=== PATIENT | female | born 1980 | race Caucasian/White ===

== ENCOUNTER 2016-12-20 09:53 | Emergency (ER) | payer OTHER ==
--- NOTE | ~2016-12-20 | CR72 ---
[facility] A Service of [facility] RADIOLOGY TEXT RESULTS PATIENT: WESLEY MARIEE LOCATION: SED : 82 UNIT #: [id number] AGE: [address]: Aníbal Kemp MD SEX: F ORDER DR: [id number] [place] [id number] MR#: [id number] Acc #: [id number] NAME: WESLEY MARIEE : 1980 SEX: F STUDY DATE/TIME: 12/20/2016 10:08 UNIT: SED ROOM: STUDY DESCRIPTION: CR Chest Single View Portable Attending Physician: Aníbal Kemp M.D. Ordering Physician: Aníbal Kepm M.D. Primary Care Physician: No Primary Care Physician MEDICAL IMAGING REPORT This report is preliminary unless electronic signature is present. EXAM Chest portable 12/20/2016 at 10:28 hours. HISTORY 36-year-old woman with shortness of air and dizziness since last night. COMPARISON 12/17/2010. FINDINGS Portable upright chest demonstrates heart size within normal limits. Lung volumes are slightly low with mild basilar vascular crowding. No acute pulmonary density or pleural effusion. IMPRESSION Slightly low lung volumes with basilar vascular crowding. No acute cardiopulmonary findings. Dictated by... Nithya Nowak M.D. THIS IS AN ELECTRONICALLY VERIFIED REPORT Nithya Nowak M.D. at 12/20/2016 6:53 PM SMM/gz TD: 12/20/2016 16:25 JOB #: [id number] MEDICAL IMAGING REPORT Page 1 of 1
--- NOTE | ~2016-12-20 | EKG ---
PATIENT: WESLEY MARIEE UNIT #: [id number] Ventricular Rate: 73 BPM Atrial Rate: 43 BPM QRS Duration: 76 ms Q-T Interval: 360 ms QTC Calculation(Bezet): 396 ms Calculated R [place]: 37 degrees Calculated T [place]: 50 degrees Diagnosis Line: Atrial fibrillation Diagnosis Line: Abnormal ECG Diagnosis Line: No previous ECGs available Diagnosis Line: Confirmed by ANGELA CRAFT MD ([id number]) on Diagnosis Line: 12/22/2016 8:40:31 AM INTERPRETING MD: VENANCIO CALVIN
[~2016-12-20 09:53] MED LIST: CELEXA10 MG PO; DICLOFENAC PO; FLOMAX0.4 M1 PO; KEFLEX500 M2 PO; METFORMIN HCL500 M1 PO; PERCOCET5/325 PO; PHENERGAN12.5 MG PO; SKELAXIN PO; [UNRECOGNIZED DRUG - OTHER]
[2016-12-20 10:46] LABS: BASOPHIL# 0.1 X10e3 (0-0.3); EOSINOPHIL# 0.1 X10e3 (0-0.7); EOSINOPHIL% 1.5 % (0.0-7.0); HEMATOCRIT 39.4 % (35.0-45.0); HEMOGLOBIN 13.2 gm/dL (12.0-16.0); LYMPHOCYTE# 1.7 X10e3 (1.0-3.5); LYMPHOCYTE% 31.1 % (17.0-45.0); MEAN CELL VOLUME 85.8 FL (83-96); MEAN CORPUSCULAR HEMOGLOBIN 28.7 PG (28-34); MEAN CORPUSCULAR HGB CONC 33.5 g/dL (30-36); MEAN PLATELET VOLUME 8.2 FL (6.5-11.5); MONOCYTE# 0.4 X10e3 (0-1.0); MONOCYTE% 7.8 % (3.0-12.0); NEUTROPHIL# 3.2 X10e3 (1.5-7.1); NEUTROPHIL% 58.6 % (40-75); PLATELET COUNT 281 X10e3 (140-420); RED CELL DISTRIBUTION WIDTH 13.6 % (11.0-15.5); WHITE BLOOD COUNT 5.5 X10e3 (4.0-10.5)
[2016-12-20 10:47] LABS: POC - CKMB 1.8 ng/mL (0.0-7.9)
[2016-12-20 10:48] LABS: POC - TROPONIN <0.05 ng/mL (<=0.05)
[2016-12-20 10:51] LABS: DIFF IND NO
[2016-12-20 11:07] LABS: ALBUMIN SERUM 4.4 g/dL (3.5-5.0); BILIRUBIN, DIRECT 0.1 mg/dL (0.0-0.2); BILIRUBIN,INDIRECT 0.5 mg/dL (0.0-0.9); BILIRUBIN,TOTAL 0.6 mg/dL (0.2-2.0); CALCIUM SERUM 9.2 mg/dL (8.4-10.2); CREATININE SERUM 0.8 mg/dL (0.6-1.4); GLOM FILT RATE Estimated 95.6 mL/min (>60); POTASSIUM 3.6 mmol/L (3.5-5.1); PROTEIN TOTAL SERUM 7.3 g/dL (6.0-8.3)
== END 2016-12-20 11:48 | disposition home or self-care (01) ==
LOC: SED 09:53
PROVIDERS: Emergency Medicine
DX: F41.9 Anxiety disorder, unspecified (principal)
CPT/HCPCS: 36415; 71010; 80048; 80076; 82553; 84484; 85025; 93005; 99285

== ENCOUNTER 2016-12-23 17:35 | Emergency (ER) | payer OTHER ==
--- NOTE | ~2016-12-23 | CR72 ---
[facility] RADIOLOGY TEXT RESULTS PATIENT: WESLEY MARIEE LOCATION: SED : [birth year] UNIT #: [id number] AGE: [address]: Genna Garcia SEX: F ORDER DR: [id number] [place] [id number] E MR#: [id number] Acc #: [id number] NAME: WESLEY MARIEE : 1980 SEX: F STUDY DATE/TIME: 12/23/2016 18:15 UNIT: SED ROOM: STUDY DESCRIPTION: CR Chest Single View Portable Attending Physician: Genna Garcia Pa-C Ordering Physician: Genna Garcia Pa-C MEDICAL IMAGING REPORT This report is preliminary unless electronic signature is present. EXAM Portable chest x-ray 12/23/2016 HISTORY Chest pain. Anxiety attack. Chest feels tight. Fluttering. Symptoms began 1700 hours today. TECHNIQUE AP lordotic view of the chest presented. COMPARISON STUDIES 12/20/2016. FINDINGS No acute-appearing bony abnormality. Heart upper limits of normal in size. Lungs moderately well-inflated. No indication of acute pulmonary disease, pleural effusion or pneumothorax. No suspicious nodule. Study limited by patient's large body habitus and AP lordotic technique. Dictated by... Tony Carlos M.D. THIS IS AN ELECTRONICALLY VERIFIED REPORT Tony Carlos M.D. at 12/24/2016 10:46 PM RAÚL/mahendra TD: 12/23/2016 21:36 JOB #: [id number] MEDICAL IMAGING REPORT [facility] RADIOLOGY TEXT RESULTS PATIENT: WESLEY MARIEE LOCATION: SED : [birth year] UNIT #: [id number] AGE: [address]: Genna Garcia SEX: F ORDER DR: Page 1 of 1
--- NOTE | ~2016-12-23 | EKG ---
PATIENT: WESLEY MARIEE UNIT #: [id number] Ventricular Rate: 66 BPM Atrial Rate: 66 BPM P-R Interval: 148 ms QRS Duration: 76 ms Q-T Interval: 412 ms QTC Calculation(Bezet): 431 ms P [place]: 9 degrees Calculated R [place]: 15 degrees Calculated T [place]: 10 degrees Diagnosis Line: Normal sinus rhythm Diagnosis Line: Normal ECG Diagnosis Line: When compared with ECG of 20-DEC-2016 10:13, Diagnosis Line: Sinus rhythm has replaced Atrial fibrillation Diagnosis Line: T wave inversion now evident in Inferior leads Diagnosis Line: Confirmed by ANGELA CRAFT MD ([id number]) on Diagnosis Line: 12/24/2016 2:49:20 PM INTERPRETING MD: VENANCIO CALVIN
[2016-12-23 18:27] LABS: BASOPHIL% 0.8 % (0-2.5); EOSINOPHIL# 0.1 X10e3 (0-0.7); HEMATOCRIT 38.8 % (35.0-45.0); HEMOGLOBIN 13.1 gm/dL (12.0-16.0); LYMPHOCYTE# 2.4 X10e3 (1.0-3.5); MEAN CELL VOLUME 85.8 FL (83-96); MEAN CORPUSCULAR HGB CONC 33.8 g/dL (30-36); MONOCYTE# 0.5 X10e3 (0-1.0); MONOCYTE% 7.5 % (3.0-12.0); NEUTROPHIL# 3.2 X10e3 (1.5-7.1); NEUTROPHIL% 51.7 % (40-75); PLATELET COUNT 288 X10e3 (140-420); RED BLOOD COUNT 4.52 X10e (3.90-5.30); RED CELL DISTRIBUTION WIDTH 13.4 % (11.0-15.5); WHITE BLOOD COUNT 6.3 X10e3 (4.0-10.5)
[2016-12-23 18:28] LABS: POC - CKMB <1.0 ng/mL (0.0-7.9); POC - TROPONIN <0.05 ng/mL (<=0.05)
[2016-12-23 18:31] LABS: DIFF IND NO
[2016-12-23 18:45] LABS: ALBUMIN SERUM 4.6 g/dL (3.5-5.0); ALKALINE PHOSPHATASE 59 U/L (32-92); ALT (SGPT) 33 U/L (10-40); AST (SGOT) 25 U/L (10-42); BILIRUBIN,TOTAL 0.5 mg/dL (0.2-2.0); BLOOD UREA NITROGEN 15 mg/dL (9-23); BUN/CREATININE RATIO 18.75; CALCIUM SERUM 9.3 mg/dL (8.4-10.2); CARBON DIOXIDE 23 mmol/L (22-31); CHLORIDE 103 mmol/L (100-111); CREATININE SERUM 0.8 mg/dL (0.6-1.4); GLOM FILT RATE Estimated 95.6 mL/min (>60); GLUCOSE FASTING 95 mg/dL (70-110); POTASSIUM 3.3 mmol/L (3.5-5.1); PROTEIN TOTAL SERUM 7.9 g/dL (6.0-8.3); SODIUM 136 mmol/L (135-145)
[2016-12-23 18:47] LABS: BILIRUBIN, DIRECT <0.1 mg/dL (0.0-0.2); BILIRUBIN,INDIRECT 0.4 mg/dL (0.0-0.9)
== END 2016-12-23 19:40 | disposition home or self-care (01) ==
LOC: SED 17:35
PROVIDERS: Physician Assistant
DX: F41.9 Anxiety disorder, unspecified (principal); G43.909 Migraine, unspecified, not intractable, without status migrainosus
CPT/HCPCS: 36415; 71010; 80048; 80076; 82553; 84484; 84703; 85025; 93005; 96374; 99284; J2060